=== PATIENT | female | born 1985 | race Caucasian/White ===

== ENCOUNTER 2019-09-15 10:45 | Inpatient (IN) | payer OTHER ==
[~2019-09-15] VITALS: Ht 165.1 cm; Wt 83.9 kg
[2019-09-15] MEDS ORDERED: OBSTETRIX ONE1 EACH PO (12:10)
[2019-09-25] MEDS ORDERED: PRENATAL CAPLE1 EAC1 PO (11:36)
== END 2019-09-27 11:08 | disposition home or self-care (01) | DRG 788 ==
LOC: LDR 09-25 10:52 → OB/GYN 09-25 16:14
PROVIDERS: Obstetrics & Gynecology; ADMIT Obstetrics & Gynecology Maternal & Fetal Medicine
PROC: 3E033VJ Introduction of Other Hormone into Peripheral Vein, Percutaneous Approach (ICD-10-PCS; 2019-09-25)
PROC: 4A1HXFZ Monitoring of Products of Conception, Cardiac Rhythm, External Approach (ICD-10-PCS; 2019-09-25)
PROC: 10D00Z1 Extraction of Products of Conception, Low, Open Approach (ICD-10-PCS; principal; 2019-09-25 14:00)
DX: O34.211 Maternal care for low transverse scar from previous cesarean delivery (principal); Z3A.38 38 weeks gestation of pregnancy; Z37.0 Single live birth